=== PATIENT | female | born 1975 | race Caucasian/White ===

== ENCOUNTER → 2018-10-30 | Outpatient (REF) | payer OTHER ==
[~2018-10-30] VITALS: Ht 172.7 cm; Wt 125.2 kg
[~2018-10-30] MED LIST: MULT1 PO; MULTI COMPLETE PO; OMEPRAZOLE20 M1 PO; PRILOSEC20 MG/CAP PO
[2018-10-30 11:26] VITALS: BP 122/85
== END | disposition home or self-care (01) | DRG 951 ==
LOC: ORM 09:00 → PO 09:21
PROVIDERS: ATTEND Internal Medicine Gastroenterology
DX: Z01.818 Encounter for other preprocedural examination (principal); K57.81 Diverticulitis of intestine, part unspecified, with perforation and abscess with bleeding; Z80.0 Family history of malignant neoplasm of digestive organs; K21.9 Gastro-esophageal reflux disease without esophagitis; G47.30 Sleep apnea, unspecified; E66.9 Obesity, unspecified; K75.81 Nonalcoholic steatohepatitis (NASH); R13.19 Other dysphagia; Z98.890 Other specified postprocedural states

== ENCOUNTER 2018-11-07 09:29 | Day surgery (SDC) | payer OTHER ==
[~2018-11-07] VITALS: Ht 172.7 cm; Wt 125.2 kg
[2018-11-07 12:11] VITALS: BP 100/64
== END 2018-11-07 12:30 | disposition home or self-care (01) | DRG 392 ==
LOC: ENDO 09:29
PROVIDERS: ATTEND Internal Medicine Gastroenterology
PROC: 0DB48ZX Excision of Esophagogastric Junction, Via Natural or Artificial Opening Endoscopic, Diagnostic (ICD-10-PCS; principal; 2018-11-07)
PROC: 0DB78ZX Excision of Stomach, Pylorus, Via Natural or Artificial Opening Endoscopic, Diagnostic (ICD-10-PCS; 2018-11-07)
PROC: 0DBN8ZX Excision of Sigmoid Colon, Via Natural or Artificial Opening Endoscopic, Diagnostic (ICD-10-PCS; 2018-11-07)
DX: K21.0 Gastro-esophageal reflux disease with esophagitis (principal); K44.9 Diaphragmatic hernia without obstruction or gangrene; K22.8 Other specified diseases of esophagus; K29.70 Gastritis, unspecified, without bleeding; K31.7 Polyp of stomach and duodenum; Z12.11 Encounter for screening for malignant neoplasm of colon; K64.4 Residual hemorrhoidal skin tags; K63.5 Polyp of colon; K64.8 Other hemorrhoids; K57.30 Diverticulosis of large intestine without perforation or abscess without bleeding; G47.30 Sleep apnea, unspecified; K75.81 Nonalcoholic steatohepatitis (NASH); Z79.899 Other long term (current) drug therapy; Z80.0 Family history of malignant neoplasm of digestive organs

== ENCOUNTER → 2018-11-25 | Outpatient (REF) | payer OTHER ==
[2018-11-25 10:38] LABS: HEMATOCRIT 42.9 % (37.0-47.0); HEMOGLOBIN 14.3 g/dl (12.0-16.0); IMMATURE GRANULOCYTES 0.7 % (0.0-5.0); MEAN CELL VOLUME 89.6 fL CALC (80.0-100.0); MEAN CORPUSCULAR HGB 29.9 pG CALC (26.0-32.0); MEAN CORPUSCULAR HGB CONC 33.3 g/L CALC (32.0-36.0); NEUT# 3.57 thou/uL (2.00-7.15); RED BLOOD COUNT 4.79 mill/uL (4.20-5.60)
[2018-11-25 11:06] LABS: ALBUMIN 4.5 g/dL (3.2-5.0); ALKALINE PHOSPHATASE 63 u/l (38-126); ANION GAP 15 (6-22 (CALC)); BILIRUBIN, TOTAL 0.8 mg/dL (0.0-1.4); BUN 14 mg/dL (7-17); BUN/CREATININE RATIO 24 (12-20 (CALC)); CALCULATED LDLCHOLESTEROL 149 mg/dL (62-129 (CALC)); CARBON DIOXIDE 26 mmol/l (22-30); CHLORIDE 103 mmol/l (95-108); CHOLESTEROL HDL RATIO 6.4 (<4.4 (CALC)); CREATININE 0.6 mg/dL (0.5-1.0); GFR > 60 ML/MIN (>=60 (CALC)); GFR FOR AFR.AMER. > 60 ML/MIN (>=60 (CALC)); HDL CHOLESTEROL 33 mg/dL (>=40); POTASSIUM 4.4 mmol/l (3.5-5.1); SGOT/AST 95 u/l (14-36); SODIUM 139 mmol/l (137-146); TOTAL CHOLESTEROL 211 mg/dl (0-199); TOTAL PROTEIN 7.2 g/dL (6.3-8.2); TOTAL TRIGLYCERIDES 147 mg/dl (30-149); VLDL CHOLESTROL 29 mg/dl (1-41 (CALC))
== END | disposition home or self-care (01) | DRG 206 ==
LOC: LAB 10:08
PROVIDERS: Internal Medicine Geriatric Medicine; ATTEND Internal Medicine Gastroenterology
DX: K76.81 Hepatopulmonary syndrome (principal); K21.9 Gastro-esophageal reflux disease without esophagitis; E78.5 Hyperlipidemia, unspecified

== ENCOUNTER → 2018-12-02 | Outpatient (REF) | payer OTHER | END | disposition home or self-care (01) | DRG 951 | LOC: MAMMO 09:44 | PROVIDERS: ATTEND Internal Medicine Geriatric Medicine | DX: Z12.31 Encounter for screening mammogram for malignant neoplasm of breast (principal) ==

== ENCOUNTER → 2018-12-04 | Outpatient (REF) | payer OTHER ==
[2018-12-04 09:27] LABS: HEMATOCRIT 42.6 % (37.0-47.0); HEMOGLOBIN 14.2 g/dl (12.0-16.0); IMMATURE GRANULOCYTES 0.9 % (0.0-5.0); MEAN CELL VOLUME 90.8 fL CALC (80.0-100.0); MEAN CORPUSCULAR HGB 30.3 pG CALC (26.0-32.0); MEAN CORPUSCULAR HGB CONC 33.3 g/L CALC (32.0-36.0); NEUT# 3.52 thou/uL (2.00-7.15); RED BLOOD COUNT 4.69 mill/uL (4.20-5.60); RED CELL DISTRI WIDTH 12.4 % (11.5-15.5)
[2018-12-04 09:47] LABS: INTERNATIONAL NORMALIZED RATIO 0.9 RATIO (0.7-1.3); PROTHROMBIN TIME 9.9 SECONDS (9.0-12.5)
== END | disposition home or self-care (01) | DRG 443 ==
LOC: CT 09:06 → INF 09:06 → CT 10:30
PROVIDERS: ATTEND Internal Medicine Gastroenterology
PROC: 0FB13ZX Excision of Right Lobe Liver, Percutaneous Approach, Diagnostic (ICD-10-PCS; principal; 2018-12-04)
DX: K75.81 Nonalcoholic steatohepatitis (NASH) (principal); R94.5 Abnormal results of liver function studies; K76.0 Fatty (change of) liver, not elsewhere classified